=== PATIENT | female | born 1965 | race Caucasian/White ===

== ENCOUNTER 2019-03-22 14:21 | Inpatient (IN) ==
--- NOTE | 2019-03-22 14:37 | DR.H&P ---
H&P - History & Physical for Day of: H&P Date: 03/22/19 - Chief Complaint Chief Complaint: Cellulitis and swelling to bilateral thighs with pain - History of Present Illness History of Present Illness: the patient is a 54-year-old white female who presents to [facility] with continued complaint of redness and swelling with pain to bilateral thigh. Describes left thigh pain worse than right. Patient states swelling has been ongoing 1 month. On Tuesday had increased swelling with knots to the inner thighs bilaterally. Was seen in the emergency room with ultrasound confirming cellulitis. Patient denies decrease in swelling. Does complain of increased firmness and pain. States it hurts to walk, sit or stand with thighs. Has increased edema to lower legs. patient has chronic kidney disease stage V. Has been started on transplant list. Patient GFR was 6.8 on Tuesday. - Past Medical History Past Medical History: Diabetes, Hypertension Additional Medical History: Chronic kidney disease Stage 5 - Past Surgical History Additional Surgical History: AV Fistula - Family History Family Medical History: Hypertension - Social History Does patient currently use any type of tobacco product: No Have you used tobacco products in the last 12 months: No Type of Tobacco Use: None Does any household member use tobacco: No Alcohol Use: None Drug Use: None Risks, benefits, and alternatives of opioids discussed: No Prescription drug monitoring program results: PDMP reviewed and no concerns identified - Review of Systems Constitutional: No Symptoms Reported Eyes: No Symptoms Reported ENT: No Symptoms Reported Respiratory: No Symptoms Reported Cardiovascular: No Symptoms Reported, Edema (Bilateral legs with 2+) Gastrointestinal: No Symptoms Reported Genitourinary: No Symptoms Reported Musculoskeletal: No Symptoms Reported Skin: Other (Erthyema with firmness to bilateral thighs) Neurological: No Symptoms Reported Oriented: Normal Eyes: Normal Ear: Normal Nose: Normal Throat: Normal Respiratory: Clear Throughout Cardiovascular: Edema (2+ edema to bilateral lower extremities) : Normal Auscultation: Bowel Sounds: Normal Palpation: Normal Tenderness: Normal (2+ edema to bilateral lower extremities) Skin: Red (bilateral inner thighs with marked erythema and firmness with tenderness) Musculoskeletal: Normal Psychiatric: Normal Mood Description: Calm Affect: Normal Speech Pattern: Clear - Assessment/Plan (1) Cellulitis of both lower extremities Status: Acute Plan: CT extremity, Clindamycin 600mg IV Q 8hrs (2) Diabetes mellitus Qualifiers: Diabetes mellitus type: type 2 Diabetes mellitus complication status: with kidney complications Diabetes mellitus complication detail: with chronic kidney disease Chronic kidney disease stage: stage 5, not on chronic dialysis Status: Acute Plan: Monitor BS (3) Chronic kidney disease, stage V Status: Acute Plan: CMP.
[2019-03-22 16:12] LABS: BASOPHILS # (AUTO) 0.2 X10^3/uL (0.0-0.1); BASOPHILS % (AUTO) 1.2 % (0.2-1.0); EOSINOPHILS # (AUTO) 0.5 x10^3/uL (0.0-0.2); EOSINOPHILS % (AUTO) 2.7 % (0.9-2.9); HEMATOCRIT 35.2 % (36.0-47.0); HEMOGLOBIN 11.8 g/dL (12.0-16.0); MEAN CORPUSCULAR HGB CONC 33.4 g/dL (33.0-35.0); MEAN CORPUSCULAR VOLUME 86.7 fL (80.0-100.0); MEAN PLATELET VOLUME 9.2 fL (7.4-11.0); MONOCYTES % (AUTO) 5.6 % (0.0-13.0); NEUTROPHILS # (AUTO) 13.2 x10^3/uL (2.2-4.8); NEUTROPHILS % (AUTO) 73.5 % (42.0-75.0); PLATELET COUNT 212 X10^3/uL (150.0-450.0); RED BLOOD COUNT 4.06 X10^6/uL (3.5-5.4); RED CELL DISTRIBUTION WIDTH 16.2 % (11.6-16.5); WHITE BLOOD COUNT 17.9 X10^3/uL (3.6-10.0)
[2019-03-22 16:24] LABS: ALBUMIN 3.2 g/dL (3.4-5.0); CALCIUM 9.1 mg/dL (8.5-10.1); CARBON DIOXIDE 18.4 mmol/L (21-32); COR CA(FOR HYPOALB) 9.7 mg/dL (8.5-10.1); CREATININE 6.59 mg/dL (0.55-1.02); TOTAL PROTEIN 8.3 g/dL (6.4-8.2)
[2019-03-22] MEDS ORDERED: NORCO 5/325 MG TAB PO PRN (17:04)
[2019-03-22 17:09] LABS: PLATELET MORPHOLOGY COMMENT NORMAL (NORMAL)
[2019-03-22] MEDS ORDERED: NS 1000 ML 1,000 ML ONE (17:24)
[2019-03-22] MEDS: CLEOCIN 600 MG IV PREMIX 600 MG/50 ML BAG IV SCH ×3 (17:29→23:00)
[2019-03-22 19:27] LABS: BILIRUBIN,URINE NEGATIVE (NEGATIVE); BLOOD/HEMOGLOBIN,URINE 1+ (NEGATIVE); GLUCOSE, URINE 2+ (NEGATIVE); KETONES,URINE NEGATIVE (NEGATIVE); LEUKOCYTE ESTERASE ,URINE NEGATIVE (NEGATIVE); NITRITES,URINE NEGATIVE (NEGATIVE); PROTEIN,URINE 3+ (NEGATIVE); UROBILINOGEN,URINE NORMAL (NORMAL)
[2019-03-22 19:28] LABS: APPEARANCE,URINE CLEAR (CLEAR); COLOR,URINE YELLOW (YELLOW)
[2019-03-22 19:32] LABS: BACTERIA,URINE NEGATIVE /HPF (NEGATIVE); SQUAMOUS EPITHELIAL CELL,UR RARE /HPF (NEGATIVE)
[2019-03-22] MEDS: SNACK - Diabetic Appropriate PO SCH (20:00)
[2019-03-22] MEDS: NS 1000 ML 1,000 ML IV SCH (20:00)
[2019-03-22] MEDS: SODIUM BICARBONATE TAB 650MG PO SCH (21:58)
[2019-03-22] MEDS: FERROUS GLUCONATE PO SCH (21:58)
[2019-03-23 05:40] LABS: BASOPHILS # (AUTO) 0.1 X10^3/uL (0.0-0.1); BASOPHILS % (AUTO) 0.6 % (0.2-1.0); EOSINOPHILS # (AUTO) 0.5 x10^3/uL (0.0-0.2); EOSINOPHILS % (AUTO) 3.9 % (0.9-2.9); HEMATOCRIT 27.8 % (36.0-47.0); HEMOGLOBIN 9.1 g/dL (12.0-16.0); LYMPHOCYTES % (AUTO) 25.8 % (21.0-51.0); MEAN CORPUSCULAR HEMOGLOBIN 28.5 pg (27.0-34.0); MEAN CORPUSCULAR HGB CONC 32.9 g/dL (33.0-35.0); MEAN CORPUSCULAR VOLUME 86.8 fL (80.0-100.0); MEAN PLATELET VOLUME 9.3 fL (7.4-11.0); MONOCYTES % (AUTO) 8.2 % (0.0-13.0); NEUTROPHILS # (AUTO) 7.2 x10^3/uL (2.2-4.8); NEUTROPHILS % (AUTO) 61.5 % (42.0-75.0); PLATELET COUNT 204 X10^3/uL (150.0-450.0); RED CELL DISTRIBUTION WIDTH 16.4 % (11.6-16.5); WHITE BLOOD COUNT 11.6 X10^3/uL (3.6-10.0)
[2019-03-23 05:56] LABS: ALBUMIN 2.7 g/dL (3.4-5.0); CALCIUM 8.3 mg/dL (8.5-10.1); CARBON DIOXIDE 15.7 mmol/L (21-32); COR CA(FOR HYPOALB) 9.3 mg/dL (8.5-10.1); CREATININE 6.6 mg/dL (0.55-1.02); TOTAL PROTEIN 7.2 g/dL (6.4-8.2)
--- NOTE | 2019-03-23 06:03 | RAD ---
HISTORY: Congestive heart failure Study: Chest AP portable Comparison: None Findings: The heart is enlarged. No congestive heart failure is noted. No acute alveolar infiltrates or pleural effusions are identified. The bony thorax is unremarkable with the exception of thoracic dextroscoliosis. IMPRESSION: Mild cardiomegaly without congestive heart failure No infiltrates Reported By:
[2019-03-23] MEDS: CLEOCIN 600 MG IV PREMIX 600 MG/50 ML BAG IV SCH ×3 (06:10→21:00)
[2019-03-23] MEDS: SODIUM BICARBONATE TAB 650MG PO SCH ×3 (06:11→21:00)
[2019-03-23 07:43] VITALS: BMI 29.2
[2019-03-23] MEDS: ZEBETA TAB 5 MG PO SCH (08:00)
[2019-03-23] MEDS: FERROUS GLUCONATE PO SCH ×2 (08:00→20:51)
[2019-03-23] MEDS ORDERED: NORCO 5/325 MG TAB PO PRN (08:16)
--- NOTE | 2019-03-23 08:55 | CT ---
HISTORY: Cellulitis left thigh Study: CT left thigh without contrast Comparison: None Technique: Axial noncontrast images with coronal and sagittal reformats. Dose reduction procedures were used with mA/kv adjusted for body size. THIS EXAMINATION IS LIMITED DUE TO THE LACK OF INTRAVENOUS CONTRAST. The examination was performed in this manner at the sole discretion of the ordering caregiver. Findings: No bony abnormality is identified. No hip joint or knee joint effusions are identified. There is diffuse subcutaneous soft tissue stranding of a [id number] degree originating laterally just below the hip joint and extending medially, anteriorly and laterally beyond the knee joint. Findings are most consistent with cellulitis. There is no involvement of the muscular compartment. No abnormal fluid collections are identified. IMPRESSION: Findings consistent with cellulitis involving the left thigh from the hip joint 2 below the knee Reported By:
[2019-03-23] MEDS ORDERED: PERCOCET TAB 5/325 MG PO PRN (09:13)
[2019-03-23] MEDS: ROCALTROL PO SCH (10:00)
[2019-03-23] MEDS ORDERED: PHARMACY CONSULT - DOSE _____ XX SCH (10:00)
[2019-03-23] MEDS: LYRICA CAP 150 MG PO SCH ×2 (10:00→20:51)
[2019-03-23] MEDS: ZESTRIL TAB 10 MG PO SCH (10:00)
[2019-03-23] MEDS: LASIX PO SCH (10:00)
[2019-03-23] MEDS: ZOCOR TAB 40 MG PO SCH (10:00)
[2019-03-23] MEDS: NS 1000 ML 1,000 ML IV SCH (17:05)
[2019-03-23] MEDS: SNACK - Diabetic Appropriate PO SCH (20:00)
[2019-03-23] MEDS: HumuLIN R SUBCUT PRN (20:51)
[2019-03-24] MEDS: SODIUM BICARBONATE TAB 650MG PO SCH ×3 (05:38→21:32)
[2019-03-24] MEDS: CLEOCIN 600 MG IV PREMIX 600 MG/50 ML BAG IV SCH ×3 (05:38→21:32)
[2019-03-24 06:15] LABS: BASOPHILS # (AUTO) 0.1 X10^3/uL (0.0-0.1); BASOPHILS % (AUTO) 0.6 % (0.2-1.0); EOSINOPHILS # (AUTO) 0.5 x10^3/uL (0.0-0.2); EOSINOPHILS % (AUTO) 4.2 % (0.9-2.9); HEMATOCRIT 30.6 % (36.0-47.0); HEMOGLOBIN 10.1 g/dL (12.0-16.0); LYMPHOCYTES # (AUTO) 2.3 X10^3/uL (1.3-2.9); MEAN CORPUSCULAR HEMOGLOBIN 28.7 pg (27.0-34.0); MEAN CORPUSCULAR HGB CONC 33.1 g/dL (33.0-35.0); MEAN CORPUSCULAR VOLUME 86.6 fL (80.0-100.0); MEAN PLATELET VOLUME 8.8 fL (7.4-11.0); MONOCYTES # (AUTO) 0.8 x10^3/uL (0.3-0.8); MONOCYTES % (AUTO) 6.9 % (0.0-13.0); NEUTROPHILS # (AUTO) 7.9 x10^3/uL (2.2-4.8); NEUTROPHILS % (AUTO) 68.3 % (42.0-75.0); PLATELET COUNT 238 X10^3/uL (150.0-450.0); RED BLOOD COUNT 3.53 X10^6/uL (3.5-5.4); RED CELL DISTRIBUTION WIDTH 16.6 % (11.6-16.5); WHITE BLOOD COUNT 11.5 X10^3/uL (3.6-10.0)
[2019-03-24 06:31] LABS: ALANINE AMINOTRANSFERASE 10 Units/L (12-78); ALBUMIN 2.9 g/dL (3.4-5.0); ALKALINE PHOSPHATASE 78 Units/L (46-116); ASPARTATE AMINO TRANSFERASE 12 Units/L (15-37); BLOOD UREA NITROGEN 93 mg/dL (7-18); CARBON DIOXIDE 15.3 mmol/L (21-32); CHLORIDE 105 mmol/L (98-107); COR CA(FOR HYPOALB) 9.9 mg/dL (8.5-10.1); CREATININE 6.24 mg/dL (0.55-1.02); SODIUM 138 mmol/L (136-145); TOTAL PROTEIN 7.6 g/dL (6.4-8.2); eGFR NON BLACK RACES 7 (>60)
[2019-03-24] MEDS: ROCALTROL PO SCH (09:13)
[2019-03-24] MEDS: LASIX PO SCH (09:13)
[2019-03-24] MEDS: LYRICA CAP 150 MG PO SCH ×2 (09:13→20:24)
[2019-03-24] MEDS: FERROUS GLUCONATE PO SCH ×2 (09:13→20:24)
[2019-03-24] MEDS: VITAMIN D3 PO SCH (09:13)
[2019-03-24] MEDS: ZEBETA TAB 5 MG PO SCH (09:14)
[2019-03-24] MEDS: ZOCOR TAB 40 MG PO SCH (09:14)
[2019-03-24] MEDS: ZESTRIL TAB 10 MG PO SCH (09:14)
--- NOTE | 2019-03-24 12:51 | CT ---
HISTORY: Left hip pain Study: CT pelvis without contrast Comparison: None Technique: Axial noncontrast images with coronal and sagittal reformats. Dose reduction procedures were used with mA/kv adjusted for body size. Findings: The pelvic bones and SI joints are intact. The hip joints are bilaterally intact. No joint erosion or joint effusion is identified. No fracture, lytic, or blastic lesion is identified. No pelvic soft tissue abnormality is identified. No periarticular soft tissue abnormality is identified. IMPRESSION: No significant abnormality identified Reported By:
--- NOTE | 2019-03-24 12:57 | CT ---
HISTORY: Back pain, gait disturbance Study: CT lumbar spine without contrast Comparison: None Technique: Axial noncontrast images with coronal and sagittal reformats. Dose reduction procedures were used with mA/kv adjusted for body size. Findings: The bones are osteopenic. The alignment is normal. The vertebral bodies are of average height. Subtle lucencies are identified in the right side of the L1 vertebral body and left side of the L3 vertebral body. Nuclear medicine bone scan is recommended in order to exclude very subtle lytic lesions. The pedicles, spinous processes, and posterior elements appear intact as do the sacrum and SI joints. The disc levels were evaluated as follows: L1-2 level, L2-3 level, L3-4 level:3 no evidence for compressive disc disease. The neural foramina are patent. The joints are normal. L4-5 level: Concentric disc bulging effaces the thecal sac and contributes to moderate lateral recess narrowing bilaterally left worse than right. The joints are normal. L5-S1 level: No evidence compressive disc disease. The neural foramina are patent. Mild facet arthropathy is present. IMPRESSION: Question of some subtle lucencies in L1 and L3 vertebral bodies. Nuclear medicine bone scan is recommended in order to exclude a subtle active lytic process Evaluation of each disc level given in detail above Reported By:
[2019-03-24] MEDS: NS 1000 ML 1,000 ML IV SCH (18:46)
[2019-03-24] MEDS: SNACK - Diabetic Appropriate PO SCH (20:45)
[2019-03-24] MEDS: HumuLIN R SUBCUT PRN (20:45)
[2019-03-25] MEDS: SODIUM BICARBONATE TAB 650MG PO SCH ×3 (05:46→21:09)
[2019-03-25] MEDS: CLEOCIN 600 MG IV PREMIX 600 MG/50 ML BAG IV SCH ×3 (05:46→21:08)
[2019-03-25 06:03] LABS: BASOPHILS # (AUTO) 0.1 X10^3/uL (0.0-0.1); EOSINOPHILS # (AUTO) 0.5 x10^3/uL (0.0-0.2); EOSINOPHILS % (AUTO) 4.6 % (0.9-2.9); HEMATOCRIT 30.3 % (36.0-47.0); HEMOGLOBIN 10.1 g/dL (12.0-16.0); LYMPHOCYTES % (AUTO) 26.2 % (21.0-51.0); MEAN CORPUSCULAR HEMOGLOBIN 28.6 pg (27.0-34.0); MEAN CORPUSCULAR HGB CONC 33.4 g/dL (33.0-35.0); MEAN CORPUSCULAR VOLUME 85.6 fL (80.0-100.0); MEAN PLATELET VOLUME 8.5 fL (7.4-11.0); MONOCYTES # (AUTO) 0.8 x10^3/uL (0.3-0.8); MONOCYTES % (AUTO) 6.5 % (0.0-13.0); NEUTROPHILS # (AUTO) 7.2 x10^3/uL (2.2-4.8); NEUTROPHILS % (AUTO) 61.7 % (42.0-75.0); PLATELET COUNT 261 X10^3/uL (150.0-450.0); RED BLOOD COUNT 3.54 X10^6/uL (3.5-5.4); WHITE BLOOD COUNT 11.6 X10^3/uL (3.6-10.0)
[2019-03-25 06:23] LABS: ALBUMIN 3.1 g/dL (3.4-5.0); CALCIUM 9.2 mg/dL (8.5-10.1); CARBON DIOXIDE 15.9 mmol/L (21-32); COR CA(FOR HYPOALB) 9.9 mg/dL (8.5-10.1); CREATININE 6.14 mg/dL (0.55-1.02); TOTAL PROTEIN 8.2 g/dL (6.4-8.2)
[2019-03-25] MEDS: LASIX PO SCH (08:17)
[2019-03-25] MEDS: ZEBETA TAB 5 MG PO SCH (08:17)
[2019-03-25] MEDS: FERROUS GLUCONATE PO SCH ×2 (08:17→20:45)
[2019-03-25] MEDS: ROCALTROL PO SCH (08:17)
[2019-03-25] MEDS: LYRICA CAP 150 MG PO SCH ×2 (08:17→20:45)
[2019-03-25] MEDS: ZOCOR TAB 40 MG PO SCH (08:17)
[2019-03-25] MEDS: ZESTRIL TAB 10 MG PO SCH (08:18)
[2019-03-25] MEDS: VITAMIN D3 PO SCH (08:18)
[2019-03-25] MEDS: HumuLIN R SUBCUT PRN ×2 (12:09→20:46)
[2019-03-25] MEDS: NS 1000 ML 1,000 ML IV SCH (17:00)
[2019-03-25] MEDS: SNACK - Diabetic Appropriate PO SCH (20:47)
[2019-03-26 05:41] LABS: BASOPHILS # (AUTO) 0.1 X10^3/uL (0.0-0.1); BASOPHILS % (AUTO) 0.6 % (0.2-1.0); EOSINOPHILS # (AUTO) 0.6 x10^3/uL (0.0-0.2); HEMATOCRIT 30.2 % (36.0-47.0); LYMPHOCYTES # (AUTO) 2.1 X10^3/uL (1.3-2.9); LYMPHOCYTES % (AUTO) 13.6 % (21.0-51.0); MEAN CORPUSCULAR HEMOGLOBIN 28.6 pg (27.0-34.0); MEAN CORPUSCULAR HGB CONC 33.3 g/dL (33.0-35.0); MEAN CORPUSCULAR VOLUME 86.1 fL (80.0-100.0); MEAN PLATELET VOLUME 8.9 fL (7.4-11.0); MONOCYTES # (AUTO) 1.1 x10^3/uL (0.3-0.8); NEUTROPHILS # (AUTO) 11.3 x10^3/uL (2.2-4.8); NEUTROPHILS % (AUTO) 74.8 % (42.0-75.0); PLATELET COUNT 233 X10^3/uL (150.0-450.0); RED CELL DISTRIBUTION WIDTH 15.9 % (11.6-16.5); WHITE BLOOD COUNT 15.1 X10^3/uL (3.6-10.0)
[2019-03-26] MEDS: SODIUM BICARBONATE TAB 650MG PO SCH ×3 (05:48→23:30)
[2019-03-26] MEDS: CLEOCIN 600 MG IV PREMIX 600 MG/50 ML BAG IV SCH (05:48)
[2019-03-26 06:06] LABS: ALANINE AMINOTRANSFERASE 12 Units/L (12-78); ALBUMIN 2.9 g/dL (3.4-5.0); ALKALINE PHOSPHATASE 81 Units/L (46-116); ASPARTATE AMINO TRANSFERASE 12 Units/L (15-37); BLOOD UREA NITROGEN 93 mg/dL (7-18); CALCIUM 9.1 mg/dL (8.5-10.1); CARBON DIOXIDE 15.8 mmol/L (21-32); CHLORIDE 104 mmol/L (98-107); CREATININE 6.08 mg/dL (0.55-1.02); SODIUM 138 mmol/L (136-145); TOTAL PROTEIN 7.6 g/dL (6.4-8.2); eGFR NON BLACK RACES 8 (>60)
[2019-03-26] MEDS ORDERED: ZOSYN VIAL 2.25 GRAMS IV SCH (09:00)
[2019-03-26] MEDS ORDERED: CONSULT PHARMACY - ANTIBIOTIC XX SCH (09:00)
[2019-03-26] MEDS: ZOCOR TAB 40 MG PO SCH (09:48)
[2019-03-26] MEDS: VITAMIN D3 PO SCH (09:49)
[2019-03-26] MEDS: LYRICA CAP 150 MG PO SCH ×2 (09:49→23:31)
[2019-03-26] MEDS: ROCALTROL PO SCH (09:49)
[2019-03-26] MEDS: ZEBETA TAB 5 MG PO SCH (09:49)
[2019-03-26] MEDS: ZESTRIL TAB 10 MG PO SCH (09:50)
[2019-03-26] MEDS: LASIX PO SCH (09:50)
[2019-03-26] MEDS: FERROUS GLUCONATE PO SCH ×2 (09:50→23:31)
--- NOTE | 2019-03-26 11:22 | VAS ---
HISTORY: Bilateral leg swelling and cellulitis Study: Bilateral lower extremity venous Doppler ultrasound Comparison: No priors TECHNIQUE: Multiple osei scale and color flow Doppler images of the deep venous system were obtained of the right and left lower extremity. FINDINGS: The deep venous system of the right and left lower extremities were evaluated from the level of the common femoral vein through the popliteal vein. Normal color flow and augmentation can be observed. In addition, normal compression is seen throughout the deep venous system. There is very mild subcutaneous edema seen in the left posterior thigh region. No localized fluid collection is seen. IMPRESSION: Negative for DVT. Mild subcutaneous edema in the left posterior thigh region. No localized fluid collection is seen. Reported By:
[2019-03-26] MEDS: NS 1000 ML 1,000 ML IV SCH (17:32)
[2019-03-26] MEDS: ZOSYN VIAL 2.25 GRAMS 2.25 G in NS 100 ML IV + SPIKE MINIBAG* 100 ML IV SCH (23:22)
[2019-03-26] MEDS: SNACK - Diabetic Appropriate PO SCH (23:32)
[2019-03-26] MEDS: HumuLIN R SUBCUT PRN ×2 (23:49→23:52)
[2019-03-27] MEDS: HumuLIN R SUBCUT PRN (05:32)
[2019-03-27] MEDS: SODIUM BICARBONATE TAB 650MG PO SCH (05:42)
[2019-03-27 06:42] LABS: BASOPHILS # (AUTO) 0.1 X10^3/uL (0.0-0.1); BASOPHILS % (AUTO) 1.1 % (0.2-1.0); EOSINOPHILS # (AUTO) 0.5 x10^3/uL (0.0-0.2); HEMOGLOBIN 10.3 g/dL (12.0-16.0); LYMPHOCYTES # (AUTO) 2.9 X10^3/uL (1.3-2.9); LYMPHOCYTES % (AUTO) 23.9 % (21.0-51.0); MEAN CORPUSCULAR HEMOGLOBIN 28.4 pg (27.0-34.0); MEAN PLATELET VOLUME 8.6 fL (7.4-11.0); MONOCYTES % (AUTO) 8.2 % (0.0-13.0); NEUTROPHILS # (AUTO) 7.7 x10^3/uL (2.2-4.8); NEUTROPHILS % (AUTO) 62.8 % (42.0-75.0); PLATELET COUNT 239 X10^3/uL (150.0-450.0); RED BLOOD COUNT 3.61 X10^6/uL (3.5-5.4); RED CELL DISTRIBUTION WIDTH 15.9 % (11.6-16.5); WHITE BLOOD COUNT 12.2 X10^3/uL (3.6-10.0)
[2019-03-27 07:06] LABS: ALBUMIN 2.8 g/dL (3.4-5.0); CALCIUM 9.2 mg/dL (8.5-10.1); COR CA(FOR HYPOALB) 10.2 mg/dL (8.5-10.1); CREATININE 6.05 mg/dL (0.55-1.02); TOTAL PROTEIN 7.5 g/dL (6.4-8.2)
[2019-03-27 07:25] LABS: CARBON DIOXIDE 14.8 mmol/L (21-32)
[2019-03-27] MEDS: ZOCOR TAB 40 MG PO SCH (08:52)
[2019-03-27] MEDS: ROCALTROL PO SCH (08:52)
[2019-03-27] MEDS: LYRICA CAP 150 MG PO SCH (08:52)
[2019-03-27] MEDS: ZEBETA TAB 5 MG PO SCH (08:52)
[2019-03-27] MEDS: ZESTRIL TAB 10 MG PO SCH (08:52)
[2019-03-27] MEDS: LASIX PO SCH (08:52)
[2019-03-27] MEDS: FERROUS GLUCONATE PO SCH (08:52)
[2019-03-27] MEDS: VITAMIN D3 PO SCH (08:53)
[2019-03-27] MEDS: ZOSYN VIAL 2.25 GRAMS 2.25 G in NS 100 ML IV + SPIKE MINIBAG* 100 ML IV SCH (08:57)
[2019-03-27 12:42] VITALS: BP 167/80
[2019-03-27] MEDS ORDERED: SODIUM BICARBONATE TAB 650MG PO SCH (14:00)
== END 2019-03-27 14:30 | disposition home or self-care (01) | DRG 602 ==
LOC: MED/SURG 15:03
PROVIDERS: ADMIT Internal Medicine; ATTEND Internal Medicine
DX: M54.89 Other dorsalgia; M25.552 Pain in left hip; N18.6 End stage renal disease; M51.36 Other intervertebral disc degeneration, lumbar region; E11.65 Type 2 diabetes mellitus with hyperglycemia; E87.5 Hyperkalemia; L03.115 Cellulitis of right lower limb; L03.116 Cellulitis of left lower limb
CPT/HCPCS: 36415; 71010; 71045; 72131; 72192; 73700; 80053; 81001; 85025; 85652; 86140; 87040; 93005; 93970; 97161; 99231; A4216; A4222; J1815; J2543; J7030; J7050; S0077

== ENCOUNTER 2021-10-28 14:35 | Inpatient (IN) ==
[2021-10-28] MEDS ORDERED: NS 1,000 ML IV 1,000 ML IV ONE (14:44)
[2021-10-28] MEDS ORDERED: ROCEPHIN VIAL 1 GRAM 1 G in NS 100 ML IV 100 ML IV SCH (15:00)
--- NOTE | 2021-10-28 17:31 | RAD ---
HISTORYHYPOTENSION HX KIDNEY TRANSPLANT 2018 DM, HTN, RENAL FAILURE, FISTULA, CATH, KIDNEY TRANSPLANTSTUDYCHEST, PA/LAT ADULTCOMPARISONFINDINGSThe trachea is midline. The cardiac silhouette is unremarkable. There is atherosclerosis in the aortic arch. There is some mild bibasilar stranding suggestive of atelectasis. There is no pleural effusion. The bony thorax is unremarkable.IMPRESSIONMinimal basilar atelectasis. Otherwise negative.Electronically signed by: Favio Todd (Oct 28, 2021 17:30:12)
[2021-10-28 18:44] LABS: BASOPHILS # (AUTO) 0.1 X10^3/uL (0.0-0.1); BASOPHILS % (AUTO) 0.3 % (0.2-1.0); HEMATOCRIT 32.6 % (36.0-47.0); HEMOGLOBIN 10.6 g/dL (12.0-16.0); LYMPHOCYTES # (AUTO) 0.6 X10^3/uL (1.3-2.9); LYMPHOCYTES % (AUTO) 2.2 % (21.0-51.0); MEAN CORPUSCULAR HEMOGLOBIN 27.8 pg (27.0-34.0); MEAN CORPUSCULAR HGB CONC 32.4 g/dL (33.0-35.0); MEAN CORPUSCULAR VOLUME 85.6 fL (80.0-100.0); MEAN PLATELET VOLUME 9.1 fL (7.4-11.0); MONOCYTES # (AUTO) 1.5 x10^3/uL (0.3-0.8); MONOCYTES % (AUTO) 5.7 % (0.0-13.0); NEUTROPHILS # (AUTO) 24.9 x10^3/uL (2.2-4.8); NEUTROPHILS % (AUTO) 91.8 % (42.0-75.0); RED BLOOD COUNT 3.81 X10^6/uL (3.5-5.4); RED CELL DISTRIBUTION WIDTH 17.1 % (11.6-16.5); WHITE BLOOD COUNT 27.1 X10^3/uL (3.6-10.0)
[2021-10-28 19:00] LABS: ALBUMIN 3.3 g/dL (3.4-5.0); CALCIUM 8.8 mg/dL (8.5-10.1); COR CA(FOR HYPOALB) 9.4 mg/dL (8.5-10.1); CREATININE 8.4 mg/dL (0.55-1.02); TOTAL PROTEIN 7.7 g/dL (6.4-8.2)
[2021-10-28 19:13] LABS: PLATELET MORPHOLOGY COMMENT NORMAL (NORMAL)
[2021-10-28 19:17] LABS: CARBON DIOXIDE 10.7 mmol/L (21-32)
[2021-10-28] MEDS: NS 1,000 ML IV 1,000 ML IV SCH (19:53)
[2021-10-28 21:16] VITALS: BMI 25.7
[2021-10-29 04:57] LABS: BASOPHILS # (AUTO) 0.1 X10^3/uL (0.0-0.1); BASOPHILS % (AUTO) 0.2 % (0.2-1.0); HEMATOCRIT 29.5 % (36.0-47.0); HEMOGLOBIN 9.6 g/dL (12.0-16.0); LYMPHOCYTES # (AUTO) 0.3 X10^3/uL (1.3-2.9); LYMPHOCYTES % (AUTO) 1.5 % (21.0-51.0); MEAN CORPUSCULAR HEMOGLOBIN 28.1 pg (27.0-34.0); MEAN CORPUSCULAR HGB CONC 32.7 g/dL (33.0-35.0); MEAN PLATELET VOLUME 9.1 fL (7.4-11.0); MONOCYTES # (AUTO) 1.5 x10^3/uL (0.3-0.8); MONOCYTES % (AUTO) 6.7 % (0.0-13.0); NEUTROPHILS # (AUTO) 20.7 x10^3/uL (2.2-4.8); NEUTROPHILS % (AUTO) 91.6 % (42.0-75.0); RED BLOOD COUNT 3.43 X10^6/uL (3.5-5.4); RED CELL DISTRIBUTION WIDTH 17.4 % (11.6-16.5); WHITE BLOOD COUNT 22.6 X10^3/uL (3.6-10.0)
[2021-10-29 05:07] LABS: ALBUMIN 2.7 g/dL (3.4-5.0); CREATININE 8.27 mg/dL (0.55-1.02); TOTAL PROTEIN 6.4 g/dL (6.4-8.2)
[2021-10-29 05:16] LABS: BILIRUBIN,URINE NEGATIVE (NEGATIVE); BLOOD/HEMOGLOBIN,URINE 3+ (NEGATIVE); GLUCOSE, URINE NEGATIVE (NEGATIVE); KETONES,URINE NEGATIVE (NEGATIVE); LEUKOCYTE ESTERASE ,URINE 3+ (NEGATIVE); NITRITES,URINE NEGATIVE (NEGATIVE); PROTEIN,URINE 3+ (NEGATIVE); UROBILINOGEN,URINE NORMAL (NORMAL)
[2021-10-29 05:21] LABS: APPEARANCE,URINE CLOUDY (CLEAR); BACTERIA,URINE 3+ /HPF (NEGATIVE); COLOR,URINE YELLOW (YELLOW); RBC,URINE TNTC /HPF (0-3); SQUAMOUS EPITHELIAL CELL,UR RARE /HPF (NEGATIVE)
[2021-10-29 05:24] LABS: CARBON DIOXIDE 7.8 mmol/L (21-32)
[2021-10-29 05:37] LABS: BAND NEUTROPHILS % 2 % (0-10)
[2021-10-29 05:38] LABS: PLATELET MORPHOLOGY COMMENT NORMAL (NORMAL)
[2021-10-29] MEDS: NS 1,000 ML IV 1,000 ML IV SCH ×4 (06:59→23:25)
[2021-10-29] MEDS: ROCEPHIN VIAL 1 GRAM 1 G in NS 100 ML IV 100 ML IV SCH (08:20)
[2021-10-29 11:53] LABS: CALCIUM 7.7 mg/dL (8.5-10.1); CREATININE 8.23 mg/dL (0.55-1.02)
[2021-10-29 11:59] LABS: CARBON DIOXIDE 9.9 mmol/L (21-32)
[2021-10-29] MEDS ORDERED: NS 1,000 ML IV 1,000 ML IV ONE (12:11)
[2021-10-29 12:57] LABS: ABG BASE EXCESS -20.4 mmol/L (-2.0-2.0)
[2021-10-29 12:58] LABS: ABG ALLEN TEST POS; ABG HCO3 7.2 mmol/L (22-26)
--- NOTE | 2021-10-29 15:09 | DR.H&P ---
H&P - History & Physical for Day of: H&P Date: 10/28/21 - Chief Complaint Chief Complaint: N/V/D weakness - History of Present Illness History of Present Illness: Patient is a 56 year old white female who is a direct admit due to Intractable N/V/D and weakness. Patient has an extensive PMH of renal failure s/p renal transplant Patient is extremely weak and not ambulatory at present. Sister gives history of GI virus like symptoms that star jen over the weekend. Patient thinks she may have had food poisoning. States that she had severe diarrhea with approximately 20 watery stools in 24 hours. States that she has had nausea and is unable to keep anything down. Nausea and diarrhea have improved since arriving to hospital. Patient has history of renal transplant approximately one year ago in [place] and states that her blood work she did 2 weeks ago was abnormal. States her last kidney function was approximately 37%. PMH ESRD (history of peritoneal dialysis and left lower arm shunt present), DM, HTN, anemia, HLD. - Past Medical History Past Medical History: Diabetes, Dyslipidemia, Hypertension, Renal Disease - Past Surgical History Surgical History: Other Additional Surgical History: AV Fistula-Left lower arm; Renal transplant - Family History Family Medical History: Diabetes Mellitus, Cancer, Heart Failure, Hypertension - Social History Alcohol Use: None - Medications Home Medications: metformin Allergy (Verified 03/22/19 15:42) pioglitazone [From Actos] Allergy (Verified 03/22/19 15:42) CONTINUE taking the following medications allopurinol 100 mg PO DAILY 10/28/21 [History] ergocalciferol (vitamin D2) WEEKLY 10/28/21 [History] gemfibrozil 600 mg PO BID 10/28/21 [History] insulin lispro [Humalog U-100 Insulin] 10/28/21 [History] insulin lispro [Humalog U-100 Insulin] 100 unit DAILY 10/28/21 [History] losartan 50 mg PO DAILY 10/28/21 [History] metoprolol tartrate 25 mg PO BID 10/28/21 [History] mycophenolate mofetil 1,000 mg PO BID 10/28/21 [History] nifedipine 30 mg PO DAILY 10/28/21 [History] prednisone 10 mg PO DAILY 10/28/21 [History] pregabalin 150 mg PO BID 10/28/21 [History] tacrolimus 0.5 mg PO BID 10/28/21 [History] - Review of Systems Constitutional: See HPI Eyes: See HPI ENT: See HPI Cardiovascular: See HPI Gastrointestinal: See HPI Genitourinary: See HPI Musculoskeletal: See HPI Skin: See HPI Neurological: See HPI - Physical Exam Vital Signs: Temperature 98.2 F Pulse Rate [Left Radial] 85 Pulse Rate 102 Respiratory Rate 21 Blood Pressure [Right Calf] 90/50 Blood Pressure 107/53 O2 Sat by Pulse Oximetry 98 Oriented: Normal, Time, Person, Place Eyes: Normal Ear: Normal Nose: Normal Throat: Normal Respiratory: RLL Diminished, LLL Diminished Cardiovascular: Tachycardia : Other (lee with minimal urine output) Auscultation: Bowel Sounds: Normal Palpation: Normal Tenderness: Diffuse, Mild Skin: Other (PAle) Musculoskeletal: Instability (Generalized global weakness) Psychiatric: Anxiety Mood Description: Anxious Affect: Anxious Speech Pattern: Clear, Appropriate - Assessment/Plan (1) Acute renal failure Status: Acute Plan: Admit. IV fluids. Cultures pending. IV abx. Repeat labs in am. Plan for transfer to tertiary center. See EMR for further orders (2) Renal transplant recipient Status: Chronic (3) Sepsis Status: Acute (4) Leukocytosis Status: Acute (5) Diabetes mellitus Qualifiers: Diabetes mellitus type: type 2 Diabetes mellitus complication status: with kidney complications Diabetes mellitus complication detail: with chronic kidney disease Chronic kidney disease stage: stage 5, not on chronic dialysis Status: Chronic - Allergies Allergies/Adverse Reactions: Allergies Allergy/AdvReac Type Severity Reaction Status Date / Time metformin Allergy Verified 03/22/19 15:42 pioglitazone [From Actos] Allergy Verified 03/22/19 15:42
[2021-10-29] MEDS ORDERED: TYLENOL 325 MG TAB PO PRN (19:32)
--- NOTE | 2021-10-29 20:05 | PCM.PROG ---
Progress Note - Subjective Subjective: Patient is a 56 year old white female who was admitted as per HPI. Patient's renal function has minimally improved with IV hydration. N/V/D have improved. Abdominal pain improved but still present. Family at bedside. Plan is to transfer to tertiary center pending bed availability. BP has improved. Blood cultures growing gram negative rods; pending final. No new concerns at present. - Past Medical Family Social History Past Med/Fam/Surg Hx: No changes since H&P Allergies: Allergies metformin Allergy (Verified 03/22/19 15:42) pioglitazone [From Actos] Allergy (Verified 03/22/19 15:42) - Review of Systems ROS: No change since H&P - Vital Signs and I&O's Vital Signs: Temperature 100.6 F Pulse Rate [Left Radial] 85 Pulse Rate 116 Respiratory Rate 24 Blood Pressure [Right Calf] 90/50 Blood Pressure 119/56 O2 Sat by Pulse Oximetry 96 Intake and Output: Intake & Output 10/26/21 10/27/21 10/28/21 10/29/21 23:59 23:59 23:59 23:59 Intake Total 1282 / 1282 2253 / 2253 Output Total 275 / 275 Balance 1282 / 1282 1977 - Physical Exam Oriented: Normal, Time, Person, Place Eyes: Normal Ear: Normal Nose: Normal Throat: Normal Respiratory: Normal Cardiovascular: Tachycardia : Other (lee with minimal urine output) Auscultation: Bowel Sounds: Normal Palpation: Normal Tenderness: Diffuse, Mild Skin: Other (PAle) Musculoskeletal: Instability (Generalized global weakness) Psychiatric: Anxiety Mood Description: Anxious Affect: Anxious Speech Pattern: Clear, Appropriate - Laboratory and Diagnostics Result Diagrams: 10/29/21 04:05 10/29/21 11:35 Labs: 10/28/21 18:20 Blood Blood Culture - Preliminary 10/28/21 18:00 Blood Blood Culture - Preliminary Laboratory WBC 22.6 X10^3/uL (3.6-10.0) H 10/29/21 04:05 RBC 3.43 X10^6/uL (3.5-5.4) L 10/29/21 04:05 Hgb 9.6 g/dL (12.0-16.0) L 10/29/21 04:05 Hct 29.5 % (36.0-47.0) L 10/29/21 04:05 MCV 86.0 fL (80.0-100.0) 10/29/21 04:05 MCH 28.1 pg (27.0-34.0) 10/29/21 04:05 MCHC 32.7 g/dL (33.0-35.0) L 10/29/21 04:05 RDW 17.4 % (11.6-16.5) H 10/29/21 04:05 Plt Count 224 X10^3/uL (150.0-450.0) 10/29/21 04:05 Plt Count Comment Adequate (ADEQUATE) 10/29/21 04:05 MPV 9.1 fL (7.4-11.0) 10/29/21 04:05 Neut % (Auto) 91.6 % (42.0-75.0) H 10/29/21 04:05 Lymph % (Auto) 1.5 % (21.0-51.0) L 10/29/21 04:05 Clay % (Auto) 6.7 % (0.0-13.0) 10/29/21 04:05 Eos % (Auto) 0.0 % (0.9-2.9) L 10/29/21 04:05 Baso % (Auto) 0.2 % (0.2-1.0) 10/29/21 04:05 Neut # (Auto) 20.7 x10^3/uL (2.2-4.8) H 10/29/21 04:05 Lymph # (Auto) 0.3 X10^3/uL (1.3-2.9) L 10/29/21 04:05 Clay # (Auto) 1.5 x10^3/uL (0.3-0.8) H 10/29/21 04:05 Eos # (Auto) 0.0 x10^3/uL (0.0-0.2) 10/29/21 04:05 Baso # (Auto) 0.1 X10^3/uL (0.0-0.1) 10/29/21 04:05 Absolute Nucleated RBC 0.0 /100WBC 10/29/21 04:05 Total Counted 100 10/29/21 04:05 Neutrophils % (Manual) 92 % (39-76) H 10/29/21 04:05 Band Neutrophils % 2 % (0-10) 10/29/21 04:05 Lymphocytes % (Manual) 1 % (13-43) L 10/29/21 04:05 Monocytes % (Manual) 5 % (4-9) 10/29/21 04:05 Plt Morphology Comment Normal (NORMAL) 10/29/21 04:05 RBC Morphology Normal (NORMAL) 10/29/21 04:05 Sample Site Rr 10/29/21 12:52 ABG pH 7.120 (7.35-7.45) L* 10/29/21 12:52 ABG pCO2 22.0 mmHg (35.0-45.0) L 10/29/21 12:52 ABG pO2 72.0 mmHg (80.0-100.0) L 10/29/21 12:52 ABG HCO3 7.2 mmol/L (22-26) L* 10/29/21 12:52 ABG O2 Saturation 87.0 % (90-100) L 10/29/21 12:52 ABG Base Excess -20.4 mmol/L (-2.0-2.0) L 10/29/21 12:52 Jaxson Test Pos 10/29/21 12:52 A-a Gradient 50.0 mmHg 10/29/21 12:52 FiO2 21.0 10/29/21 12:52 Blood Gas Comments Pt porsha well cdn 10/29/21 12:52 Sodium 132 mmol/L (136-145) L 10/29/21 11:35 Corrected Sodium 135 mmol/L (136-145) L 10/29/21 11:35 Potassium 5.0 mmol/L (3.5-5.1) 10/29/21 11:35 Chloride 98 mmol/L (98-107) 10/29/21 11:35 Carbon Dioxide 9.9 mmol/L (21-32) L* 10/29/21 11:35 BUN 124 mg/dL (7-18) H 10/29/21 11:35 Creatinine 8.23 mg/dL (0.55-1.02) H 10/29/21 11:35 Est GFR (MDRD) Af Amer 7 (>60) L 10/29/21 11:35 Est GFR (MDRD) Non-Af 5 (>60) L 10/29/21 11:35 Glucose 214 mg/dL (65-99) H 10/29/21 11:35 POC Glucose (mg/dL) 182 mg/dL (65-99) H 10/28/21 20:26 Lactic Acid 0.3 mmol/L (0.4-2.0) L 10/29/21 12:35 Calcium 7.7 mg/dL (8.5-10.1) L 10/29/21 11:35 Corrected Calcium 9.0 mg/dL (8.5-10.1) 10/29/21 04:05 Total Bilirubin 0.90 mg/dL (0.2-1.0) 10/29/21 04:05 AST 6 Units/L (15-37) L 10/29/21 04:05 ALT 9 Units/L (12-78) L 10/29/21 04:05 Alkaline Phosphatase 114 Units/L (46-116) 10/29/21 04:05 C-Reactive Protein 287.30 mg/L (0-3.0) H 10/28/21 18:00 Total Protein 6.4 g/dL (6.4-8.2) 10/29/21 04:05 Albumin 2.7 g/dL (3.4-5.0) L 10/29/21 04:05 Globulin 3.7 g/dL (2.5-4.5) 10/29/21 04:05 Albumin/Globulin Ratio 0.7 Ratio (1.1-2.1) L 10/29/21 04:05 Specimen Type Catherized urine 10/29/21 04:36 Urine Color Yellow (YELLOW) 10/29/21 04:36 Urine Appearance Cloudy (CLEAR) 10/29/21 04:36 Urine pH 5.0 (5.0 - 8.0) 10/29/21 04:36 Ur Specific [place] 1.025 (1.000-1.030) 10/29/21 04:36 Urine Protein 3+ (NEGATIVE) 10/29/21 04:36 Urine Glucose (UA) Negative (NEGATIVE) 10/29/21 04:36 Urine Ketones Negative (NEGATIVE) 10/29/21 04:36 Urine Occult Blood 3+ (NEGATIVE) 10/29/21 04:36 Urine Nitrite Negative (NEGATIVE) 10/29/21 04:36 Urine Bilirubin Negative (NEGATIVE) 10/29/21 04:36 Urine Urobilinogen Normal (NORMAL) 10/29/21 04:36 Ur Leukocyte Esterase 3+ (NEGATIVE) 10/29/21 04:36 Urine RBC Tntc /HPF (0-3) A 10/29/21 04:36 Urine WBC Tntc /HPF (0-5) A 10/29/21 04:36 Ur Squamous Epith Cells Rare /HPF (NEGATIVE) 10/29/21 04:36 Urine Bacteria 3+ /HPF (NEGATIVE) 10/29/21 04:36 Ur Culture Indicated? Yes/culture set up 10/29/21 04:36 Acetone, Semi-Quant Negative (NEGATIVE) 10/29/21 12:35 - Plan (1) Acute renal failure Status: Acute Plan: Admit. IV fluids. Cultures pending. IV abx. Repeat labs in am. Plan for transfer to tertiary center. See EMR for further orders (2) Renal transplant recipient Status: Chronic (3) Sepsis Status: Acute (4) Leukocytosis Status: Acute (5) Diabetes mellitus Status: Chronic Qualifiers: Diabetes mellitus type: type 2 Diabetes mellitus complication status: with kidney complications Diabetes mellitus complication detail: with chronic kidney disease Chronic kidney disease stage: stage 5, not on chronic dialysis (6) Hypotension Status: Acute Plan: Improved; continue IV fluids
[2021-10-30 04:54] LABS: BASOPHILS % (AUTO) 0.2 % (0.2-1.0); HEMATOCRIT 27.9 % (36.0-47.0); HEMOGLOBIN 9.1 g/dL (12.0-16.0); LYMPHOCYTES # (AUTO) 0.3 X10^3/uL (1.3-2.9); LYMPHOCYTES % (AUTO) 1.8 % (21.0-51.0); MEAN CORPUSCULAR HGB CONC 32.5 g/dL (33.0-35.0); MEAN CORPUSCULAR VOLUME 86.1 fL (80.0-100.0); MEAN PLATELET VOLUME 9.2 fL (7.4-11.0); MONOCYTES # (AUTO) 1.1 x10^3/uL (0.3-0.8); NEUTROPHILS # (AUTO) 14.7 x10^3/uL (2.2-4.8); RED BLOOD COUNT 3.24 X10^6/uL (3.5-5.4); RED CELL DISTRIBUTION WIDTH 17.1 % (11.6-16.5); WHITE BLOOD COUNT 16.2 X10^3/uL (3.6-10.0)
[2021-10-30 05:06] LABS: ALBUMIN 2.2 g/dL (3.4-5.0); CALCIUM 7.8 mg/dL (8.5-10.1); COR CA(FOR HYPOALB) 9.2 mg/dL (8.5-10.1); CREATININE 8.05 mg/dL (0.55-1.02); TOTAL PROTEIN 5.9 g/dL (6.4-8.2)
[2021-10-30 05:18] LABS: CARBON DIOXIDE 7.4 mmol/L (21-32)
[2021-10-30] MEDS: NS 1,000 ML IV 1,000 ML IV SCH (05:34)
[2021-10-30 05:38] LABS: ANISOCYTOSIS SLIGHT; PLATELET MORPHOLOGY COMMENT NORMAL (NORMAL)
[2021-10-30 05:40] LABS: OVALOCYTES PRESENT; TEAR DROP CELLS PRESENT
[2021-10-30 05:41] LABS: POIKILOCYTOSIS SLIGHT
[2021-10-30] MEDS ORDERED: NS 100 ML IV 100 ML ONE (06:02)
[2021-10-30] MEDS ORDERED: CARDIZEM INJ 50 MG VIAL ONE (06:03)
[2021-10-30] MEDS ORDERED: CARDIZEM INJ 125 MG VIAL ONE (06:04)
[2021-10-30] MEDS ORDERED: CARDIZEM INJ 50 MG VIAL IVP ONE ×2 (06:16→07:11)
[2021-10-30] MEDS: CARDIZEM INJ 125 MG VIAL 125 MG in NS 100 ML IV 100 ML IV PRN ×3 (06:17→23:14)
[2021-10-30 06:40] LABS: CKMB % 1.2 % (<4); CREATINE KINASE MB 1.5 ng/mL (0-4.0)
[2021-10-30 06:41] LABS: ABG BASE EXCESS -22.4 mmol/L (-2.0-2.0)
[2021-10-30 06:42] LABS: ABG ALLEN TEST YES; ABG HCO3 6.1 mmol/L (22-26)
[2021-10-30] MEDS ORDERED: SODIUM BICARBONATE 8.4% INJ ADULT IVP ONE (06:45)
[2021-10-30] MEDS ORDERED: SODIUM BICARBONATE 8.4% INJ ADULT ONE ×2 (06:47→06:59)
[2021-10-30] MEDS: ROCEPHIN VIAL 1 GRAM 1 G in NS 100 ML IV 100 ML IV SCH (08:35)
[2021-10-30 08:53] LABS: ABG ALLEN TEST POS; ABG HCO3 6.5 mmol/L (22-26)
[2021-10-30] MEDS ORDERED: NovoLIN R (or HumuLIN R) SC PRN (09:31)
[2021-10-30 09:53] LABS: MAGNESIUM 1.8 mg/dL (1.7-2.9); URIC ACID 9.9 mg/dL (2.6-6.0)
--- NOTE | 2021-10-30 09:53 | RAD ---
HISTORYSOB, HTNSTUDYCHEST, 1 VIEWCOMPARISONTwo-view chest from 10/28/2021.TECHNIQUEAP view of the chestFINDINGSThe cardiac silhouette is stably enlarged. Mediastinal contours appear stable. Airspace opacity in the right mid and lower lung and left lower lung. There is blunting of the left costophrenic sulcus. No pneumothorax.IMPRESSIONCardiomegaly. Bilateral lower lung predominant airspace opacity may represent pneumonia. Blunted left costophrenic sulcus suspicious for small pleural effusions. Recommend follow-up to document resolution.Electronically signed by: Aristides Bueno (Oct 30, 2021 09:51:55)
[2021-10-30] MEDS: LOPRESSOR TAB 25 MG PO SCH ×2 (09:58→21:13)
[2021-10-30] MEDS ORDERED: COZAAR PO SCH (10:00)
[2021-10-30] MEDS ORDERED: PROCARDIA XL PO SCH (10:00)
[2021-10-30] MEDS ORDERED: PREDNISONE TAB 10 MG PO SCH (10:00)
[2021-10-30] MEDS ORDERED: ZYLOPRIM PO SCH (10:00)
[2021-10-30] MEDS: SODIUM BICARBONATE TAB 650MG PO SCH ×3 (10:45→21:13)
[2021-10-30] MEDS ORDERED: LASIX IVP ONE (10:54)
[2021-10-30] MEDS ORDERED: NS 1,000 ML IV 1,000 ML IV SCH (11:00)
[2021-10-30] MEDS: LYRICA CAP 150 mg PO SCH ×2 (11:00→21:12)
[2021-10-30] MEDS: SOLU-Medrol 40 MG VIAL IVP SCH ×3 (11:46→21:13)
[2021-10-30] MEDS: PATIENT'S HOME MEDICATION PO SCH ×4 (11:46→21:12)
[2021-10-30 12:43] LABS: CKMB % 1.3 % (<4); CREATINE KINASE MB 2.1 ng/mL (0-4.0)
[2021-10-30] MEDS ORDERED: LOPID PO SCH (16:30)
[2021-10-30] MEDS ORDERED: LANOXIN INJ IVP ONE (19:11)
[2021-10-30] MEDS ORDERED: ZOCOR TAB 40 MG PO SCH (21:00)
--- NOTE | 2021-10-31 00:31 | PCM.PROG ---
Progress Note - Progress Note for Day of Date of Exam: 10/30/21 - Subjective Subjective: Patient is a 56 year old white female who was admitted as per HPI. Patient's renal function has minimally improved with IV hydration. Urine output continues to be minimal. N/V/D have improved. Abdominal pain improved but still present. Family at bedside. Plan is to transfer to tertiary center pending bed availability. BP continues to be low. Blood cultures growing gram negative rods; pending final. Patient developed a. fib with RVR new onset during night and was started on a cardizem drip. Also receiving Bicard due to metabolic acidosis secondary to renal failure. Patient is alert and oriented. No new concerns at present. Labs reviewed as well as imaging. >60 minutes critical care time. - Past Medical Family Social History Past Med/Fam/Surg Hx: No changes since H&P Allergies: Allergies metformin Allergy (Verified 03/22/19 15:42) pioglitazone [From Actos] Allergy (Verified 03/22/19 15:42) - Review of Systems ROS: No change since H&P - Vital Signs and I&O's Vital Signs: Temperature 97.8 F Pulse Rate [Left Radial] 85 Pulse Rate 88 Respiratory Rate 20 Blood Pressure [Right Calf] 90/50 Blood Pressure 104/52 O2 Sat by Pulse Oximetry 95 Intake and Output: Intake & Output 10/28/21 10/29/21 10/30/21 10/31/21 23:59 23:59 23:59 23:59 Intake Total 1282 / 1282 4405 / 4405 2550 / 2550 Output Total 400 / 400 500 / 500 Balance 1282 / 1282 4005 / 4005 2049 - Physical Exam Oriented: Normal, Time, Person, Place Eyes: Normal Ear: Normal Nose: Normal Throat: Normal Respiratory: Diminished Cardiovascular: Tachycardia, Irregular (A. fib with RVR), Edema (nonpitting edema of upper and lower ext. ) : Other (lee with minimal urine output) Auscultation: Bowel Sounds: Normal Palpation: Normal Tenderness: Diffuse, Mild Skin: Other (PAle) Musculoskeletal: Instability (Generalized global weakness) Psychiatric: Anxiety Mood Description: Anxious Affect: Anxious Speech Pattern: Clear, Appropriate - Laboratory and Diagnostics Result Diagrams: 10/30/21 04:10 10/30/21 04:10 Labs: 10/28/21 18:20 Blood Blood Culture - Preliminary 10/28/21 18:00 Blood Blood Culture - Preliminary 10/29/21 04:36 Urine,Catheterized Urine Culture - Preliminary Laboratory WBC 16.2 X10^3/uL (3.6-10.0) H 10/30/21 04:10 RBC 3.24 X10^6/uL (3.5-5.4) L 10/30/21 04:10 Hgb 9.1 g/dL (12.0-16.0) L 10/30/21 04:10 Hct 27.9 % (36.0-47.0) L 10/30/21 04:10 MCV 86.1 fL (80.0-100.0) 10/30/21 04:10 MCH 28.0 pg (27.0-34.0) 10/30/21 04:10 MCHC 32.5 g/dL (33.0-35.0) L 10/30/21 04:10 RDW 17.1 % (11.6-16.5) H 10/30/21 04:10 Plt Count 183 X10^3/uL (150.0-450.0) 10/30/21 04:10 Plt Count Comment Adequate (ADEQUATE) 10/30/21 04:10 MPV 9.2 fL (7.4-11.0) 10/30/21 04:10 Neut % (Auto) 91.0 % (42.0-75.0) H 10/30/21 04:10 Lymph % (Auto) 1.8 % (21.0-51.0) L 10/30/21 04:10 [place] % (Auto) 7.0 % (0.0-13.0) 10/30/21 04:10 Eos % (Auto) 0.0 % (0.9-2.9) L 10/30/21 04:10 Baso % (Auto) 0.2 % (0.2-1.0) 10/30/21 04:10 Neut # (Auto) 14.7 x10^3/uL (2.2-4.8) H 10/30/21 04:10 Lymph # (Auto) 0.3 X10^3/uL (1.3-2.9) L 10/30/21 04:10 [place] # (Auto) 1.1 x10^3/uL (0.3-0.8) H 10/30/21 04:10 Eos # (Auto) 0.0 x10^3/uL (0.0-0.2) 10/30/21 04:10 Baso # (Auto) 0.0 X10^3/uL (0.0-0.1) 10/30/21 04:10 Absolute Nucleated RBC 0.3 /100WBC 10/30/21 04:10 Total Counted 100 10/30/21 04:10 Neutrophils % (Manual) 92 % (39-76) H 10/30/21 04:10 Band Neutrophils % 2 % (0-10) 10/29/21 04:05 Lymphocytes % (Manual) 2 % (13-43) L 10/30/21 04:10 Monocytes % (Manual) 6 % (4-9) 10/30/21 04:10 Plt Morphology Comment Normal (NORMAL) 10/30/21 04:10 RBC Morphology Abnormal (NORMAL) A 10/30/21 04:10 Poikilocytosis Slight A 10/30/21 04:10 Anisocytosis Slight A 10/30/21 04:10 Tear Drop Cells Present 10/30/21 04:10 Ovalocytes Present 10/30/21 04:10 Sample Site Rrad 10/30/21 08:47 ABG pH 7.120 (7.35-7.45) L* 10/30/21 08:47 ABG pCO2 20.0 mmHg (35.0-45.0) L 10/30/21 08:47 ABG pO2 92.0 mmHg (80.0-100.0) 10/30/21 08:47 ABG HCO3 6.5 mmol/L (22-26) L* 10/30/21 08:47 ABG O2 Saturation 94.0 % (90-100) 10/30/21 08:47 ABG Base Excess -21.0 mmol/L (-2.0-2.0) L 10/30/21 08:47 Jaxson Test Pos 10/30/21 08:47 A-a Gradient 111.0 mmHg 10/30/21 08:47 FiO2 32.0 10/30/21 08:47 Blood Gas Comments Pt porsha well elj 10/30/21 08:47 Sodium 136 mmol/L (136-145) 10/30/21 04:10 Corrected Sodium 137 mmol/L (136-145) 10/30/21 04:10 Potassium 5.0 mmol/L (3.5-5.1) 10/30/21 04:10 Chloride 103 mmol/L (98-107) 10/30/21 04:10 Carbon Dioxide 7.4 mmol/L (21-32) L* 10/30/21 04:10 BUN 131 mg/dL (7-18) H 10/30/21 04:10 Creatinine 8.05 mg/dL (0.55-1.02) H 10/30/21 04:10 Est GFR (MDRD) Af Amer 7 (>60) L 10/30/21 04:10 Est GFR (MDRD) Non-Af 6 (>60) L 10/30/21 04:10 Glucose 127 mg/dL (65-99) H 10/30/21 04:10 POC Glucose (mg/dL) 226 mg/dL (65-99) H 10/30/21 20:12 Lactic Acid 0.3 mmol/L (0.4-2.0) L 10/29/21 12:35 Uric Acid 9.9 mg/dL (2.6-6.0) H 10/30/21 04:10 Calcium 7.8 mg/dL (8.5-10.1) L 10/30/21 04:10 Corrected Calcium 9.2 mg/dL (8.5-10.1) 10/30/21 04:10 Magnesium 1.8 mg/dL (1.7-2.9) 10/30/21 04:10 Total Bilirubin 0.50 mg/dL (0.2-1.0) 10/30/21 04:10 AST 9 Units/L (15-37) L 10/30/21 04:10 ALT 9 Units/L (12-78) L 10/30/21 04:10 Alkaline Phosphatase 115 Units/L (46-116) 10/30/21 04:10 Creatine Kinase 158 Units/L (26-192) 10/30/21 11:30 CK-MB (CK-2) 2.1 ng/mL (0-4.0) 10/30/21 11:30 CK/CKMB % Calc 1.3 % (<4) 10/30/21 11:30 Troponin I High Sens 92.8 ng/L (4.0-60.0) H* 10/30/21 11:30 C-Reactive Protein 259.20 mg/L (0-3.0) H 10/30/21 04:10 Total Protein 5.9 g/dL (6.4-8.2) L 10/30/21 04:10 Albumin 2.2 g/dL (3.4-5.0) L 10/30/21 04:10 Globulin 3.7 g/dL (2.5-4.5) 10/30/21 04:10 Albumin/Globulin Ratio 0.6 Ratio (1.1-2.1) L 10/30/21 04:10 Specimen Type Catherized urine 10/29/21 04:36 Urine Color Yellow (YELLOW) 10/29/21 04:36 Urine Appearance Cloudy (CLEAR) 10/29/21 04:36 Urine pH 5.0 (5.0 - 8.0) 10/29/21 04:36 Ur Specific [place] 1.025 (1.000-1.030) 10/29/21 04:36 Urine Protein 3+ (NEGATIVE) 10/29/21 04:36 Urine Glucose (UA) Negative (NEGATIVE) 10/29/21 04:36 Urine Ketones Negative (NEGATIVE) 10/29/21 04:36 Urine Occult Blood 3+ (NEGATIVE) 10/29/21 04:36 Urine Nitrite Negative (NEGATIVE) 10/29/21 04:36 Urine Bilirubin Negative (NEGATIVE) 10/29/21 04:36 Urine Urobilinogen Normal (NORMAL) 10/29/21 04:36 Ur Leukocyte Esterase 3+ (NEGATIVE) 10/29/21 04:36 Urine RBC Tntc /HPF (0-3) A 10/29/21 04:36 Urine WBC Tntc /HPF (0-5) A 10/29/21 04:36 Ur Squamous Epith Cells Rare /HPF (NEGATIVE) 10/29/21 04:36 Urine Bacteria 3+ /HPF (NEGATIVE) 10/29/21 04:36 Ur Culture Indicated? Yes/culture set up 10/29/21 04:36 Acetone, Semi-Quant Negative (NEGATIVE) 10/29/21 12:35 - Plan (1) Atrial fibrillation with rapid ventricular response Status: Acute Plan: Serial cardiacs and EKGs. Tele. Cardizem drip (2) Acute renal failure Status: Acute Plan: Admit. IV fluids. Cultures pending. IV abx. Repeat labs in am. Plan for transfer to tertiary center. See EMR for further orders (3) Renal transplant recipient Status: Chronic (4) Sepsis Status: Acute (5) Leukocytosis Status: Acute (6) Diabetes mellitus Status: Chronic Qualifiers: Diabetes mellitus type: type 2 Diabetes mellitus complication status: with kidney complications Diabetes mellitus complication detail: with chronic kidn ey disease Chronic kidney disease stage: stage 5, not on chronic dialysis (7) Hypotension Status: Acute Plan: Improved; continue IV fluids (8) Metabolic acidosis Status: Acute Plan: Bicarb
[2021-10-31] MEDS: SODIUM BICARBONATE TAB 650MG PO SCH (05:14)
[2021-10-31 05:30] LABS: BASOPHILS % (AUTO) 0.2 % (0.2-1.0); HEMATOCRIT 29.9 % (36.0-47.0); HEMOGLOBIN 9.6 g/dL (12.0-16.0); LYMPHOCYTES # (AUTO) 0.2 X10^3/uL (1.3-2.9); LYMPHOCYTES % (AUTO) 0.7 % (21.0-51.0); MEAN CORPUSCULAR HEMOGLOBIN 27.9 pg (27.0-34.0); MEAN CORPUSCULAR VOLUME 87.1 fL (80.0-100.0); MEAN PLATELET VOLUME 9.4 fL (7.4-11.0); MONOCYTES # (AUTO) 0.1 x10^3/uL (0.3-0.8); MONOCYTES % (AUTO) 0.3 % (0.0-13.0); NEUTROPHILS # (AUTO) 21.3 x10^3/uL (2.2-4.8); NEUTROPHILS % (AUTO) 98.8 % (42.0-75.0); RED BLOOD COUNT 3.44 X10^6/uL (3.5-5.4); RED CELL DISTRIBUTION WIDTH 17.7 % (11.6-16.5); WHITE BLOOD COUNT 21.6 X10^3/uL (3.6-10.0)
[2021-10-31 05:31] LABS: ABG BASE EXCESS -25.4 mmol/L (-2.0-2.0)
[2021-10-31 05:33] LABS: ABG ALLEN TEST POS; ABG HCO3 5.2 mmol/L (22-26)
[2021-10-31 05:42] LABS: ALANINE AMINOTRANSFERASE 12 Units/L (12-78); ALBUMIN 2.2 g/dL (3.4-5.0); ALKALINE PHOSPHATASE 128 Units/L (46-116); ASPARTATE AMINO TRANSFERASE 10 Units/L (15-37); CHLORIDE 102 mmol/L (98-107); COR CA(FOR HYPOALB) 10.4 mg/dL (8.5-10.1); COR NA(FOR HYPERGLY) 142 mmol/L (136-145); SODIUM 138 mmol/L (136-145); TOTAL PROTEIN 6.3 g/dL (6.4-8.2); eGFR NON BLACK RACES 5 (>60)
[2021-10-31 05:45] LABS: CARBON DIOXIDE 6.9 mmol/L (21-32)
[2021-10-31 05:46] LABS: BLOOD UREA NITROGEN > 150 mg/dL (7-18)
--- NOTE | 2021-10-31 05:49 | RAD ---
PROCEDURE: Chest X-ray 1 View .HISTORY: HYPOTENSION; SEPSIS .TECHNIQUE: AP portable done at 6 a.m..COMPARISON: 10/30/2021.TECHNICAL QUALITY: Satisfactory .FINDINGS:Heart size upper limits of normal and unchanged.Central vascularity is within normal limits.There is some widening of the mediastinum on the right compared to previous study extending from the apex down to the hemidiaphragm and could be related to mediastinal hemorrhage.Increased atelectasis/consolidation and pleural fluid right base. Left lung hilario clear.IMPRESSION:1. Some widening of the mediastinum on the right since previous films and CT recommended for further evaluation.2. Increased consolidation and pleural fluid right base may represent pneumonia.Electronically signed by: Jeremy Nazario (Oct 31, 2021 05:49:18)
[2021-10-31 05:59] LABS: BAND NEUTROPHILS % 2 % (0-10)
[2021-10-31 06:00] LABS: ANISOCYTOSIS SLIGHT; OVALOCYTES PRESENT; PLATELET MORPHOLOGY COMMENT NORMAL (NORMAL)
[2021-10-31] MEDS ORDERED: LEVOPHED 8 MG/250 ML IV *PREMIX 8 MG/250 ML PLAST..BAG IV ONE (08:25)
[2021-10-31] MEDS ORDERED: LEVOPHED INJ (VIAL) 8 MG in D5W 250 ML IV 242 ML IV PRN (08:38)
[2021-10-31 09:53] VITALS: BP 61/29
--- NOTE | 2022-01-15 00:29 | PCM.DCPLAN ---
Discharge Plan - Discharge Plan Hospital Course: Admit date 10/28/21 Discharge date 10/31/21 DOS 10/31/21 Admit diagnosis(1) Acute renal failure (2) Renal transplant recipient (3) Sepsis (4) Leukocytosis (5) Diabetes mellitus Discharge diagnosis(1) Atrial fibrillation with rapid ventricular response (2) Acute renal failure (3) Renal transplant recipient (4) Sepsis (5) Leukocytosis (6) Diabetes mellitus (7) Hypotension (8) Metabolic acidosis Hospital Course Patient is a 56 year old white female who is a direct admit due to Intractable N/V/D and weakness. Patient has an extensive PMH of renal failure s/p renal transplant. Patient is extremely weak and not ambulatory at present. Sister gives history of GI virus like symptoms that started over the weekend. Patient thinks she may have had food poisoning. States that she had severe diarrhea with approximately 20 watery stools in 24 hours. States that she has had nausea and is unable to keep anything down. Nausea and diarrhea have improved since arriving to hospital. Patient has history of renal transplant approximately one year ago in [place] and states that her blood work she did 2 weeks ago was abnormal. States her last kidney function was approximately 37%. PMH ESRD (history of peritoneal dialysis and left lower arm shunt present), DM, HTN, anemia, HLD. Patient's renal function minimally improved with IV hydration. Urine output continued to be minimal. N/V/D have improved but not resolved. Abdominal pain improved but still present. BP continues to be low. Blood cultures growing gram negative rods; pending final. Patient developed a. fib with RVR new onset during night and was started on a cardizem drip. Also receiving Bicard due to metabolic acidosis secondary to renal failure. Patient is alert and oriented. Family at bedside. Patient was transferred to tertiary [place]. Labs reviewed as well as imaging. >60 minutes critical care time. PATIENT WAS SEEN AND EXAMINED ON THIS DATE BY DR HOPE; DOCUMENTING A SCRIBE Discharge time spent >90 mins on transfer to tertiary [place]. Condition: Stable Health Concerns: Post Hospitalization: new medications and changes needed to prevent readmission or further decline. Pt educated and given instructions on all concerns. Plan of Treatment: Continue with present treatment and follow up plan. Pt is to keep follow up appointment as instructed and take medications as ordered. Prescriptions: No Action allopurinol 100 mg tablet 100 mg PO DAILY bisoprolol fumarate 5 mg tablet 5 mg PO DAILY calcitriol [Rocaltrol] 0.5 mcg capsule 0.5 mg PO DAILY cholecalciferol (vitamin D3) [Vitamin D3] 5,000 unit Tablet 1 tab PO DAILY ergocalciferol (vitamin D2) 1,250 mcg (50,000 unit) capsule WEEKLY ferrous sulfate [iron] 325 mg (65 mg iron) tablet 325 mg PO BID furosemide [Lasix] 40 mg tablet 40 mg PO DAILY gemfibrozil 600 mg tablet 600 mg PO BID hydrocodone-acetaminophen [[place]] 5-325 mg tablet 5 - 325 mg PO Q6H PRN (Reason: Pain) insulin lispro [Humalog U-100 Insulin] 100 unit/mL solution 100 unit DAILY insulin lispro [Humalog U-100 Insulin] 100 unit/mL solution lisinopril [Zestril] 10 mg tablet 10 mg PO DAILY losartan 50 mg tablet 50 mg PO DAILY Lyrica 150 mg capsule 300 mg PO HS Lyrica 150 mg capsule 150 mg PO DAILY metoprolol tartrate 25 mg tablet 25 mg PO BID mycophenolate mofetil 500 mg tablet 1,000 mg PO BID nifedipine 30 mg tablet extended release 24 hr 30 mg PO DAILY prednisone 10 mg tablet 10 mg PO DAILY pregabalin 150 mg capsule 150 mg PO BID simvastatin [Zocor] 40 mg tablet 40 mg PO HS sodium bicarbonate 650 mg Tablet 1,300 mg PO TID Qty: 0 RF: 0 tacrolimus 0.5 mg capsule 0.5 mg PO BID - Orders to Discharge Patient Discharge Orders: Discharge by Transfer to Outside Facility (Routine); Ordered 10/31/21 Ordered By: DERICK HOPE - Follow ups/Referrals Follow ups/Referrals: REENA CARDOZA [Primary Care Provider] - 1 WEEK - Instructions Print Language: GREEK
== END 2021-10-31 09:48 | disposition short-term general hospital (02) | DRG 872 ==
LOC: ICU
PROVIDERS: ADMIT Internal Medicine; ATTEND Internal Medicine
DX: R53.1 Weakness; N18.5 Chronic kidney disease, stage 5; A41.59 Other Gram-negative sepsis; Z20.822 Contact with and (suspected) exposure to COVID-19; N17.8 Other acute kidney failure; E11.65 Type 2 diabetes mellitus with hyperglycemia; Z94.0 Kidney transplant status; R79.82 Elevated C-reactive protein (CRP); R11.2 Nausea with vomiting, unspecified; B96.1 Klebsiella pneumoniae [K. pneumoniae] as the cause of diseases classified elsewhere; I48.91 Unspecified atrial fibrillation